=== PATIENT | female | born 1930 | race Caucasian/White ===

== ENCOUNTER 2018-06-24 09:35 | Emergency (ER) | payer OTHER ==
[~2018-06-24] VITALS: Ht 152.4 cm; Wt 55.8 kg
[~2018-06-24 09:35] MED LIST: AMOX1TAB12 PO; CLONAZEPAM0.5 MG; DICLOFENAC SODI50 MG PO; MOBIC15 MG PO; PROMETHAZINE D118 ML PO; VISTARIL25 MG; ZOLOFT100 MG
== END 2018-06-24 11:24 | disposition home or self-care (01) ==
LOC: ER 09:35
DX: M79.621 Pain in right upper arm (principal)

== ENCOUNTER 2018-08-20 11:06 | Emergency (ER) | payer OTHER ==
[~2018-08-20] VITALS: Ht 152.4 cm; Wt 56.2 kg
[2018-08-20] MEDS ORDERED: SULINDAC150 MG PO (12:35)
== END 2018-08-20 12:42 | disposition home or self-care (01) ==
LOC: ER 11:06
DX: M25.512 Pain in left shoulder (principal)

== ENCOUNTER 2018-09-10 16:16 | Emergency (ER) | payer OTHER ==
[~2018-09-10] VITALS: Ht 157.5 cm; Wt 55.8 kg
[~2018-09-10 16:16] MED LIST changes: +SULINDAC150 MG PO
== END 2018-09-10 18:01 | disposition home or self-care (01) ==
LOC: ER 16:16
DX: M62.838 Other muscle spasm (principal)

== ENCOUNTER → 2020-03-11 | Emergency (ER) | payer OTHER ==
[~2020-03-11] VITALS: Ht 154.9 cm; Wt 54.4 kg
== END | disposition home or self-care (01) ==
LOC: ER 23:31
DX: S40.021A Contusion of right upper arm, initial encounter (principal); S00.03XA Contusion of scalp, initial encounter; W01.198A Fall on same level from slipping, tripping and stumbling with subsequent striking against other object, initial encounter; Y93.89 Activity, other specified; Y92.018 Other place in single-family (private) house as the place of occurrence of the external cause; Y99.8 Other external cause status

== ENCOUNTER 2020-09-13 17:20 | Emergency (ER) | payer OTHER ==
[~2020-09-13] VITALS: Ht 152.4 cm; Wt 49.9 kg
[2020-09-13] MEDS ORDERED: VISTARIL50 MG PO (18:04)
== END 2020-09-13 18:22 | disposition home or self-care (01) ==
LOC: ER 17:20
DX: M54.89 Other dorsalgia (principal)

== ENCOUNTER 2020-09-21 04:25 | Emergency (ER) | payer OTHER ==
[~2020-09-21] VITALS: Ht 157.5 cm; Wt 45.4 kg
[~2020-09-21 04:25] MED LIST changes: +VISTARIL50 MG PO
[2020-09-21] MEDS ORDERED: ZOLOFT50 MG (04:37)
[2020-09-21] MEDS ORDERED: TRAZODONE HCL150 MG (04:38)
[2020-09-21] MEDS ORDERED: NEURONTIN300 MG (04:38)
[2020-09-21] MEDS ORDERED: SIMVASTATIN80 MG (04:38)
[2020-09-21] MEDS ORDERED: COZAAR50 MG (04:39)
[2020-09-21] MEDS ORDERED: TENORMIN50 M1 (04:39)
[2020-09-21] MEDS ORDERED: CANNABIS OIL (04:59)
[2020-09-21] MEDS ORDERED: PROTONIX20 MG PO (10:09)
[2020-09-21] MEDS ORDERED: CARAFATE1 GM PO (10:09)
[2020-09-21] MEDS ORDERED: PEPCID AC20 MG PO (10:09)
[2020-09-21] MEDS ORDERED: LEVSIN0.125 MG PO (10:09)
== END 2020-09-21 10:17 | disposition home or self-care (01) ==
LOC: ER 04:25
DX: K57.90 Diverticulosis of intestine, part unspecified, without perforation or abscess without bleeding (principal); I10 Essential (primary) hypertension

== ENCOUNTER 2020-09-23 20:24 | Emergency (ER) | payer OTHER ==
[~2020-09-23] VITALS: Ht 152.4 cm; Wt 48.5 kg
[~2020-09-23 20:24] MED LIST changes: +CANNABIS OIL; +CARAFATE1 GM PO; +COZAAR50 MG; +LEVSIN0.125 MG PO; +NEURONTIN300 MG; +PEPCID AC20 MG PO; +PROTONIX20 MG PO; +SIMVASTATIN80 MG; +TENORMIN50 M1; +TRAZODONE HCL150 MG; +ZOLOFT50 MG
[2020-09-23] MEDS ORDERED: SUCRALFATE1 GM PO (21:21)
[2020-09-23] MEDS ORDERED: PANTOPRAZOLE SO20 MG PO (21:21)
[2020-09-23] MEDS ORDERED: HYOSCYAMINE0.125 MG PO (21:21)
[2020-09-23] MEDS ORDERED: FAMOTIDINE20 MG PO (21:21)
== END 2020-09-23 22:57 | disposition home or self-care (01) ==
LOC: ER 20:24
DX: R06.02 Shortness of breath (principal); F06.4 Anxiety disorder due to known physiological condition